=== PATIENT | male | born 1990 | race Caucasian/White ===

== ENCOUNTER 2021-06-12 18:27 | Emergency (ER) | payer OTHER ==
[2021-06-12] MEDS ORDERED: VIBRAMYCIN100 MG PO (20:02)
== END 2021-06-12 20:44 | disposition home or self-care (01) ==
LOC: FER 18:27
DX: S61.213A Laceration without foreign body of left middle finger without damage to nail, initial encounter (principal); F17.210 Nicotine dependence, cigarettes, uncomplicated; Z23 Encounter for immunization
CPT/HCPCS: 90471; 90715